=== PATIENT | female | born 1970 | race Caucasian/White ===

== ENCOUNTER 2018-09-01 20:29 | Emergency (ER) | payer SELFPAY ==
[2018-09-01] MEDS ORDERED: Acetaminophen/Codeine 30-300mg Tablet ONE (21:03)
[2018-09-01] MEDS ORDERED: cefTRIAXone\\ROCEPHIN 1 GM VIAL ONE (21:03)
[2018-09-01] MEDS ORDERED: Lidocaine 1% PF 5 ML VIAL ONE (21:04)
== END 2018-09-01 21:33 | disposition home or self-care (01) ==
LOC: BURERS 20:29
DX: S61.531A Puncture wound without foreign body of right wrist, initial encounter (principal); E03.9 Hypothyroidism, unspecified; F32.9 Major depressive disorder, single episode, unspecified; Z79.899 Other long term (current) drug therapy; W61.92XA Struck by other birds, initial encounter
CPT/HCPCS: 96372; J0696; J2001

== ENCOUNTER 2019-02-11 13:10 | Outpatient (CLI) | payer OTHER ==
--- NOTE | 2019-02-11 20:05 | RAD ---
CHEST TWO VIEWS: 02/11/19 By history, the patient has an abnormal x-ray from a facility in [place]. This report will be a preli minary reading. When I am able to secure the disc and review it for comparison, I will issue an adden dum to this report. There is a patchy irregular opacity in the lingula of the left upper lobe. This may merely be infilt rative in nature and indicative of pneumonia, but a mass or neoplasm is not ruled out at this point. The right lung is clear. The heart size is normal. There are no effusions. Irregular area measures a pproximately 3 cm in size. IMPRESSION: 3 cm irregular density in the lingula of the left upper lobe. Infection versus neoplasm is the prima ry consideration. As soon as I am able to get to the disc with the patient's outside films, I will is michelle an addendum to this report. Code T POS: HOME
== END 2019-02-11 13:11 | disposition home or self-care (01) ==
LOC: BURRAD 13:10
PROVIDERS: ATTEND Family Medicine
DX: R93.89 Abnormal findings on diagnostic imaging of other specified body structures (principal); J98.4 Other disorders of lung
CPT/HCPCS: 71046

== ENCOUNTER 2019-03-05 08:14 | Outpatient (CLI) | payer OTHER ==
--- NOTE | 2019-03-05 08:40 | RAD ---
Exam: Chest 2 views HISTORY:Abnormal chest x-ray, follow-up imaging following antibiotic therapy Comparison: 02/11/2019 FINDINGS: Lungs: Persistent density of the left lower lung zone remains Cardiac silhouette:Stable Pulmonary vessels: Normal Pleural Spaces: Clear Pneumothorax: None Osseous abnormalities: None of acuity. IMPRESSION: Persistent left lower lung zone opacity. Given persistence following antibiotic therapy, dedicated CT thorax with contrast is warranted for further evaluation.
== END 2019-03-05 08:15 | disposition home or self-care (01) ==
LOC: BURRAD 08:14
PROVIDERS: ATTEND Family Medicine
DX: R93.89 Abnormal findings on diagnostic imaging of other specified body structures (principal); R91.8 Other nonspecific abnormal finding of lung field
CPT/HCPCS: 71046

== ENCOUNTER 2020-05-15 20:58 | Emergency (ER) | payer OTHER, SELFPAY ==
[~2020-05-15 20:58] MED LIST: Lidocaine 1% PF 5 ML VIAL ONE
[2020-05-15] MEDS ORDERED: Amoxicillin/Potassium Clav 875 MG TAB ONE (22:10)
[2020-05-15] MEDS ORDERED: Bacitracin 1 PK ONE (22:10)
--- NOTE | 2020-05-16 07:49 | RAD ---
RIGHT HAND 3 VIEWS: Date: 05/15/2020 No opaque foreign body seen. No fractures evident. All bones appear intact. IMPRESSION: No acute findings. POS: HOME
== END 2020-05-15 22:16 | disposition home or self-care (01) ==
LOC: BURERS 20:58
DX: S61.451A Open bite of right hand, initial encounter (principal); S61.411A Laceration without foreign body of right hand, initial encounter; E03.9 Hypothyroidism, unspecified; F32.9 Major depressive disorder, single episode, unspecified; W55.31XA Bitten by other hoof stock, initial encounter; Z79.899 Other long term (current) drug therapy
CPT/HCPCS: 12001

== ENCOUNTER 2025-08-29 18:42 | Emergency (ER) | payer BC, SELFPAY ==
[2025-08-29] MEDS ORDERED: Ketorolac Tromethamine 30 MG (1 mL) VIAL ONE (19:10)
[2025-08-29] MEDS ORDERED: Prochlorperazine 10 MG/2 ML VIAL ONE (19:11)
== END 2025-08-29 20:16 | disposition home or self-care (01) ==
LOC: BURERS 18:42
DX: G43.909 Migraine, unspecified, not intractable, without status migrainosus (principal); E03.9 Hypothyroidism, unspecified; Z79.890 Hormone replacement therapy
CPT/HCPCS: 96374; 96375; J0780; J1885